=== PATIENT | female | born 1985 | race Caucasian/White ===

== ENCOUNTER 2018-05-12 13:07 | Emergency (ER) | payer OTHER, BC ==
[~2018-05-12] VITALS: Ht 157.5 cm; Wt 61.2 kg
[2018-05-12 13:14] VITALS: BP_SYST 142
[2018-05-12] MEDS ORDERED: KETOROLAC TROMETHAMINE 30 MG VIAL IVP ONE (13:45)
[2018-05-12] MEDS ORDERED: NACL 0.9% 1,000 ML IV ONE (13:45)
[2018-05-12 13:48] LABS: BILIRUBIN,URINE NEGATIVE (NEGATIVE); BLOOD, URINE NEGATIVE (NEGATIVE); CLARITY/URINE CLEAR (CLEAR); COLOR,URINE YELLOW (YELLOW); GLUCOSE,URINE NEGATIVE (NEGATIVE); KETONES,URINE NEGATIVE (NEGATIVE); LEUKOCYTE ESTERASE ,URINE NEGATIVE (NEGATIVE); NITRITE, URINE NEGATIVE (NEGATIVE); PH,URINE 5.5 (5.0-8.0); PROTEIN URINE NEGATIVE (NEGATIVE); UROBILINOGEN,URINE 0.2 (0.2-1.0)
[2018-05-12] MEDS ORDERED: SUMAtriptan SUCCINATE 6 MG/0.5 ML VIAL SUBCUT ONE (14:45)
[2018-05-12 16:20] VITALS: BP_SYST 146
== END 2018-05-12 16:20 | disposition home or self-care (01) ==
LOC: SED 13:07
DX: G44.009 Cluster headache syndrome, unspecified, not intractable (principal); Z93.1 Gastrostomy status; R03.0 Elevated blood-pressure reading, without diagnosis of hypertension
CPT/HCPCS: 70450; 81003; 81025; 99285; J1885; J3030